=== PATIENT | female | born 1950 | race Two or more races ===

== ENCOUNTER 2023-01-04 07:12 | Emergency (ER) | payer OTHER ==
[~2023-01-04] VITALS: Ht 157.5 cm; Wt 70.5 kg
[2023-01-04] MEDS ORDERED: SODIUM CHLORIDE 0.9% 2,000 ML IV ONE (07:45)
[2023-01-04] MEDS ORDERED: ONDANSETRON HCL 4 MG/2 ML VIAL IVP ONE (07:45)
[2023-01-04 08:17] LABS: COVID AG,FIA SOURCE NASOPHARYNGEAL
[2023-01-04 08:40] LABS: HEMATOCRIT 43.7 % (36-46); HEMOGLOBIN 13.7 g/dL (12.0-16.0); MEAN CORPUSCULAR HEMOGLOBIN 30.3 pg (26.0-34.0); MEAN CORPUSCULAR HGB CONC 31.3 G/dL (31.0-37.0); MEAN CORPUSCULAR VOLUME 97 fL (80-100); PLATELET COUNT (AUTO) 105 K/uL (150-450); RED BLOOD CELL COUNT(AUTO) 4.52 MIL/uL (4.00-5.20); RED CELL DISTRIBUTION WIDTH 16.2 % (11.5-14.5)
[2023-01-04 08:59] LABS: CREATININE 2.88 mg/dL (0.60-1.30)
[2023-01-04 09:05] LABS: BILIRUBIN,TOTAL 0.3 mg/dL (0.1-1.0); TOTAL PROTEIN, SERUM 5.8 g/dL (6.4-8.2)
[2023-01-04 09:15] LABS: BAND NEUTROPHILS % (MANUAL) 29 % (0-5); LYMPHOCYTES % (MANUAL) 6 % (22-44); MONOCYTES % (MANUAL) 1 % (2-9); MYELOCYTES % 1 % (0-0); SEGMENTED NEUTROPHILS % 63 % (40-70)
[2023-01-04] MEDS ORDERED: CLINDAMYCIN 600 MG/D5% WATER 50 ML IV ONE (10:00)
[2023-01-04] MEDS ORDERED: SODIUM CHLORIDE 0.9% 1,000 ML IV ONE (10:00)
[2023-01-04] MEDS ORDERED: PIPERACILLIN/TAZO 3.375 GM/D5W 50 ML IV ONE (10:00)
[2023-01-04 10:25] LABS: APPEARANCE,URINE HAZY (CLEAR); BILIRUBIN,URINE NEGATIVE (NEGATIVE); GLUCOSE, URINE (UA) 70-100 mg/dL (NEGATIVE); KETONES,URINE NEGATIVE (NEGATIVE); LEUKOCYTE ESTERASE ,URINE LARGE (NEGATIVE); NITRATE,URINE NEGATIVE (NEGATIVE); OCCULT BLOOD,URINE MODERATE (NEGATIVE); PH,URINE 5.5 (5.0-8.0); PROTEIN,URINE 30-70 mg/dL (NEGATIVE); UROBILINOGEN,URINE <=1.0 mg/dL (<=1.0)
[2023-01-04 10:35] LABS: BACTERIA,URINE Moderate /HPF (None Seen); RBC,URINE 0-2 /HPF (0-2); SQUAMOUS EPITHELIAL CELL,UR Moderate /LPF (None Seen)
[2023-01-04 10:40] LABS: LACTIC ACID 5.5 mmol/L (0.4-2.0)
[2023-01-04 11:36] LABS: ABG BASE EXCESS -9.9 mmol/L (-2.0-3.0); ABG CARBOXYHEMOGLOBIN 0.3 % (0.0-1.5); ABG HCO3 17.2 mmol/L (22.0-26.0); ABG METHEMOGLOBIN 0.2 % (0.0-1.5); ABG OXYGEN CONTENT 11.3 mL/dL (15.0-23.0); ABG OXYGEN SATURATION 94.1 % (95.0-98.0); ABG OXYHEMOGLOBIN 93.6 % (94.0-100.0); ABG PCO2 28 mmHg (35-45); ABG PH 7.364 (7.35-7.450); ABG TOTAL HEMOGLOBIN 8.5 G/dL (12.0-18.0); PO2, ARTERIAL BG 75.4 mmHg (75.0-83.0); SITE, BLOOD GAS RT BRACHIAL; SOURCE, BLOOD GAS ARTERIAL; TEMPERATURE, FAHRENHEIT, BG 97.5 FAHREN (96.0-98.6)
[2023-01-04 12:40] LABS: CALCIUM, TOTAL 7.8 mg/dL (8.8-10.5); CREATININE 2.49 mg/dL (0.60-1.30); POTASSIUM 4.1 mmol/L (3.5-5.1)
[2023-01-04] MEDS ORDERED: DiphenhydrAMINE HCL 50 MG/ML VIAL IVP ONE ×2 (12:45→13:15)
[2023-01-04] MEDS ORDERED: NOREPINEPHRINE 8 MG/D5%-WATER 250 ML IV PRN (12:45)
[2023-01-04 13:06] LABS: LACTIC ACID 4.4 mmol/L (0.4-2.0)
[2023-01-04] MEDS ORDERED: ALBUTEROL SULFATE 2.5 MG/0.5 ML NEB SOLUTION NEB ONE (13:15)
[2023-01-04] MEDS ORDERED: IPRATROPIUM BROMIDE 0.5 MG/2.5 ML NEB SOLUTION NEB ONE (13:15)
[2023-01-04] MEDS ORDERED: PHENYLEPHRINE 200 MG/D5%-WATER 250 ML IV PRN (16:00)
[2023-01-04] MEDS ORDERED: VASOPRESSIN 40 UNITS in DEXTROSE 5%-WATER 98 ML IV PRN ×4 (16:00)
[2023-01-04] MEDS ORDERED: FentaNYL CITRATE PF 100 MCG/2 ML VIAL IVP ONE ×2 (18:30→19:15)
[2023-01-04] MEDS ORDERED: PIPERACILLIN SODIUM/TAZOBACTAM 2.25 GM in DEXTROSE 5%-WATER 50 ML IV ONE (18:30)
[2023-01-04 18:45] VITALS: BP 106/65
[2023-01-04] MEDS ORDERED: *CLINICAL-LEVOFLOXACIN IVPB DOSING CLINICAL ONE (18:45)
[2023-01-04] MEDS ORDERED: VANCOMYCIN HCL 1.5 GM in DEXTROSE 5%-WATER 250 ML IV ONE (19:00)
[2023-01-04] MEDS ORDERED: LEVOFLOXACIN 750 MG/D5% WATER 150 ML IV ONE (19:00)
[2023-01-04] MEDS ORDERED: SODIUM CHLORIDE 0.9% IV ONE (19:00)
[2023-01-04] MEDS ORDERED: MEROPENEM IV ONE (19:00)
[2023-01-04] MEDS ORDERED: *CLINICAL-MEROPENEM DOSING CLINICAL ONE (19:00)
== END 2023-01-04 19:41 | disposition short-term general hospital (02) ==
LOC: EMS 07:14
DX: N12 Tubulo-interstitial nephritis, not specified as acute or chronic (principal); N17.9 Acute kidney failure, unspecified; R55 Syncope and collapse; E11.65 Type 2 diabetes mellitus with hyperglycemia; R65.21 Severe sepsis with septic shock; E78.00 Pure hypercholesterolemia, unspecified; Z20.822 Contact with and (suspected) exposure to COVID-19
CPT/HCPCS: 99291; 70450; 96365; 96367; 71045; 96375; 76700; 96361; 96366; 87426; 80053; 83690; 83880; 84484; 85025; 87040; 87205; 87086; 87077; 87186; 82805; 36600; 94640; 74176; 99292; 93005; 96376; 96368; 84145; 81001; 80048; 83605; 36415; G0480; J3490 ×2; J1200; J3010; J2185; J2405; J2543; J3370; J1956; Q9967; J7060 ×2; J7030; J7050; 51702; J2370; J7613